=== PATIENT | male | born 1990 | race Asian ===

== ENCOUNTER 2018-01-19 12:50 | Emergency (ER) | payer SELFPAY ==
[2018-01-19 13:57] LABS: INFLUENZA A PATIENT NEGATIVE (NEGATIVE); INFLUENZA B PATIENT NEGATIVE (NEGATIVE); OBC FLU VALID
== END 2018-01-19 14:16 | disposition home or self-care (01) ==
LOC: ER 12:50
DX: J32.9 Chronic sinusitis, unspecified (principal)
CPT/HCPCS: 87804; 87804-59; 99284